=== PATIENT | female | born 1970 | race American Indian/Alaskan Native ===

== ENCOUNTER 2016-12-13 05:15 | Emergency (ER) | payer SELFPAY ==
[2016-12-13] MEDS ORDERED: TYLENOL PO ONE (05:37)
[2016-12-13] MEDS ORDERED: NACL 0.9% IR ONE (07:18)
[2016-12-13] MEDS ORDERED: VALIUM PO ONE (07:18)
[2016-12-13] MEDS ORDERED: XYLOCAINE 1% 20 mL INFILTRATI ONE (07:18)
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
[2016-12-13] MEDS ORDERED: BOOSTRIX IM ONE (07:21)
[2016-12-13 09:05] VITALS: BP 124/76
== END 2016-12-13 09:05 | disposition home or self-care (01) ==
LOC: ED 05:15
DX: S61.412A Laceration without foreign body of left hand, initial encounter (principal); S90.112A Contusion of left great toe without damage to nail, initial encounter; F41.1 Generalized anxiety disorder; F43.0 Acute stress reaction; T74.21XA Adult sexual abuse, confirmed, initial encounter; Y04.8XXA Assault by other bodily force, initial encounter; Y93.89 Activity, other specified; Y92.89 Other specified places as the place of occurrence of the external cause; Y99.8 Other external cause status
CPT/HCPCS: 90471; 90715

== ENCOUNTER 2016-12-14 13:39 | Emergency (ER) | payer SELFPAY ==
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
[2016-12-14] MEDS ORDERED: VIREAD PO ONE (16:00)
[2016-12-14] MEDS ORDERED: EMTRIVA PO ONE ×2 (16:00→16:15)
[2016-12-14 16:15] LABS: Bacteria,Urine 1+ /HPF (Negative); Bilirubin,Urine NEG (Negative); Blood,Urine LG (Negative); Ketones,Urine TR mg/dL (Negative); Leukocyte Esterase,Urine MOD (Negative); Mucus,Urine FEW /HPF; Nitrite,Urine NEG (Negative); Urobilinogen,Urine < 2.0 mg/dL (<2.0)
[2016-12-14 16:18] LABS: Basophils % (Auto) 0.9 % (0.0-1.8); Eosinophils % (Auto) 1.5 % (0.0-4.3); Hematocrit 42.7 % (30.3-42.9); Mean Corpuscular HGB Conc 33 % (30-34); Mean Corpuscular Hemoglobin 29 pg (28-32); Mean Corpuscular Volume 88 fl (79-97); Platelet Count 367 K/mm3 (140-440); Red Blood Count 4.88 M/mm3 (3.65-5.03); Red Cell Distribution Width 14.2 % (13.2-15.2); White Blood Count 11.5 K/mm3 (4.5-11.0)
[2016-12-14 16:42] LABS: Alanine Aminotransferase 32 units/L (7-56); Albumin 4.3 g/dL (3.9-5); Albumin/Globulin Ratio 1.2 %; Alkaline Phosphatase 86 units/L (35-129); BUN/Creatinine Ratio 15.55; Blood Urea Nitrogen 14 mg/dL (7-17); Calcium 9.2 mg/dL (8.4-10.2); Carbon Dioxide 24 mmol/L (22-30); Glucose 86 mg/dL (65-100); Total Protein 7.9 g/dL (6.3-8.2)
[2016-12-14 16:43] LABS: Anion Gap 16 mmol/L; Chloride 104.7 mmol/L (98-107); HIV-1 Antigen p24 Non React (Non React); HIVR-1/2 Ab Non React (Non React); Potassium 4.5 mmol/L (3.6-5.0); Sodium 140 mmol/L (137-145)
[2016-12-14 17:25] LABS: Bilirubin,Direct < 0.2 mg/dL (0-0.2); Bilirubin,Indirect 0.1 mg/dL
[2016-12-14] MEDS ORDERED: NORCO 5/325 ONE (18:08)
[2016-12-14] MEDS ORDERED: NORCO 5/325 PO ONE (19:11)
[2016-12-14 19:29] VITALS: BP 120/77
[2016-12-14] MEDS ORDERED: ISENTRESS PO SCH (22:00)
[2016-12-15 12:18] LABS: Rapid Plasma Reagin Nonreactive (Nonreactive)
== END 2016-12-14 19:29 | disposition home or self-care (01) ==
LOC: ED 13:39
DX: N30.01 Acute cystitis with hematuria (principal); Z20.9 Contact with and (suspected) exposure to unspecified communicable disease
CPT/HCPCS: 36415; 80048; 80074; 81001; 84703; 85025; 86592; 87806; 99283